=== PATIENT | female | born 1930 | race Caucasian/White ===

== ENCOUNTER 2019-01-28 12:46 | Outpatient (CLI) | payer MEDICARE ==
--- NOTE | 2019-01-28 13:23 | ULT ---
Bilateral renal ultrasound CLINICAL INDICATION: Renal Insufficiency COMPARISON: None FINDINGS: Right kidney: No solid mass, or hydronephrosis. Left kidney: No solid mass, or hydronephrosis. Urinary bladder: Normal IMPRESSION: Unremarkable exam.
== END 2019-01-28 12:47 | disposition home or self-care (01) ==
LOC: BICULT 12:46
PROVIDERS: ATTEND Internal Medicine Geriatric Medicine
DX: R31.0 Gross hematuria (principal)
CPT/HCPCS: 76770

== ENCOUNTER 2019-06-30 13:46 | Outpatient (CLI) | payer MEDICARE ==
--- NOTE | 2019-06-30 14:39 | CT ---
CT LUMBAR SPINE WITHOUT CONTRAST: HISTORY: The patient fell in May. L1 fracture. Evaluate for healing. COMPARISON: None. FINDINGS: Chronic changes in the lung bases. Heart appears to be enlarged. Limited evaluation. The visualized s olid organs are grossly unremarkable. Symmetric attenuation of the paraspinal muscles. 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 From L2 through L5, no evidence of fracture. Endplate sclerosis and Schmorl's nodes are noted at the superior endplate of L2, superior endplate of L3 and inferior endplate of L3. There is a lso sclerosis involving the superior endplate of L4. Spondylolisthesis: L3-L4: 1.3 mm of anterolisthesis. No associated spondylolysis. Calcification of the L5-S1 discs. At L1 there is mild loss of vertebral body height due to superior compression fracture. There is retr opulsion. There is resultant mild central canal stenosis. Fracture lucencies do persist. Mild reactive changes in the paraspinal muscles. T12-L1: No significant central canal stenosis or significant neural foraminal narrowing. L1-L2: No significant central canal stenosis or significant neural foraminal narrowing. L2-L3: Mild loss of disc space height. Broad based disc bulge, ligamentum flavum thickening and facet hypertrophy result in mild central canal stenosis. Right neural foramen is patent. Mild left neural foraminal narrowing. L3-L4: Broad based disc bulge, ligament flavum thickening and facet hypertrophy result in mild centra l canal stenosis. Mild bilateral neural foraminal narrowing. L4-L5: Broad based disc bulge, ligament flavum thickening and facet hypertrophy result in mild centra l canal stenosis. Mild bilateral neural foraminal narrowing. L5-S1: No significant canal stenosis or significant neural foraminal narrowing. IMPRESSION: Subacute mild compression fracture at L1. There is mild retropulsion with mild central canal stenosis . Fracture lucencies do persist. Minimal inflammatory changes/reactive changes of the paraspinal muscles. Transcribed Date/Time: 06/30/2019 2:59 PM
== END 2019-06-30 13:47 | disposition home or self-care (01) ==
LOC: BICCT 13:46
PROVIDERS: ATTEND Family Medicine
DX: M54.5 Low back pain (principal); S32.019A Unspecified fracture of first lumbar vertebra, initial encounter for closed fracture
CPT/HCPCS: 72131